=== PATIENT | male | born 2000 | race Caucasian/White ===

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

== ENCOUNTER 2023-03-08 09:31 | Emergency (ER) | payer OTHER, SELFPAY ==
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
[2023-03-08 09:45] VITALS: BP 128/54; PULSE 48; RESP 16; TEMP 36.9; O2SAT 98; BMI 26.3
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
[2023-03-08 10:02] VITALS: BP 132/55; PULSE 64; RESP 16; TEMP 37.1; O2SAT 97
[2023-03-08] MEDS: Cyclobenzaprine HCl 10 MG TABLET PO (10:30)
[2023-03-08] MEDS: Ketorolac Tromethamine 15 MG/ML VIAL IM (10:31)
[2023-03-08] MEDS: Lidocaine 4 % Patch ADH..PATCH 1 PATCH TRANSDERMA (10:31)
--- NOTE | 2023-03-08 10:36 | PC.NURSE ---
medication administered per provider order. pt awaiting xray at this time.
== END 2023-03-08 12:32 | disposition home or self-care (01) ==
PROVIDERS: Emergency Provider Emergency Medicine
DX: S16.1XXA Strain of muscle, fascia and tendon at neck level, initial encounter (principal); S39.012A Strain of muscle, fascia and tendon of lower back, initial encounter; R51.9 Headache, unspecified; M54.2 Cervicalgia; M25.511 Pain in right shoulder; V43.52XA Car driver injured in collision with other type car in traffic accident, initial encounter; Y93.9 Activity, unspecified; Y92.410 Unspecified street and highway as the place of occurrence of the external cause; Y99.9 Unspecified external cause status
CPT/HCPCS: 72040; 72100; 73030; 96372; 99284; J1885

== ENCOUNTER 2023-04-10 02:55 | Emergency (ER) | payer OTHER, SELFPAY ==
--- NOTE | ~2023-04-10 | CT_ITS ---
EXAMINATION: CT HEAD WITHOUT CONTRAST CT CERVICAL SPINE WITHOUT CONTRAST. CLINICAL INFORMATION: Headache. COMPARISON: None available. TECHNIQUE: Contiguous axial imaging was performed through the head and cervical spine without intravenous administration of contrast. Sagittal and coronal reformatted images also obtained. This CT examination was performed using dose optimization techniques as appropriate, variously including the following: *Automated exposure control *Adjustment of mA and/or kV according to patient size (this includes techniques or standardized protocols for targeted exams where dose is matched to indication/reason for exam; i.e. extremities or head) *Use of iterative reconstruction technique DLP: 1199 mGy-cm FINDINGS: The lateral, third and fourth ventricles are normally outlined. The cortical sulci and basal cisterns are normally outlined as well. There is no acute territorial defect, hemorrhage or midline shift. The extra-axial spaces are unremarkable. Calvarium: Intact. Maxillofacial sinuses and mastoids: Clear as visualized. Cervical spine: There is straightening of the expected cervical spine curvature. The disc spaces are maintained. The spinal canal and neuroforamen are patent. The bone mineralization is normal. There is no fracture. Soft tissues are unremarkable. The visualized upper lung lewis are clear. CT/CT cervical spine wo IV con IMPRESSION: 1. No evidence of acute intracranial abnormality. 2. No evidence of acute cervical spine traumatic injury.
--- NOTE | ~2023-04-10 | CT_ITS ---
EXAMINATION: CT HEAD WITHOUT CONTRAST CT CERVICAL SPINE WITHOUT CONTRAST. CLINICAL INFORMATION: Headache. COMPARISON: None available. TECHNIQUE: Contiguous axial imaging was performed through the head and cervical spine without intravenous administration of contrast. Sagittal and coronal reformatted images also obtained. This CT examination was performed using dose optimization techniques as appropriate, variously including the following: *Automated exposure control *Adjustment of mA and/or kV according to patient size (this includes techniques or standardized protocols for targeted exams where dose is matched to indication/reason for exam; i.e. extremities or head) *Use of iterative reconstruction technique DLP: 1199 mGy-cm FINDINGS: The lateral, third and fourth ventricles are normally outlined. The cortical sulci and basal cisterns are normally outlined as well. There is no acute territorial defect, hemorrhage or midline shift. The extra-axial spaces are unremarkable. Calvarium: Intact. Maxillofacial sinuses and mastoids: Clear as visualized. Cervical spine: There is straightening of the expected cervical spine curvature. The disc spaces are maintained. The spinal canal and neuroforamen are patent. The bone mineralization is normal. There is no fracture. Soft tissues are unremarkable. The visualized upper lung lewis are clear. CT/CT head/brain wo IV con IMPRESSION: 1. No evidence of acute intracranial abnormality. 2. No evidence of acute cervical spine traumatic injury.
[2023-04-10 03:13] VITALS: BP 131/71; PULSE 67; RESP 16; TEMP 36.6; O2SAT 99; BMI 26.6
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
[2023-04-10 05:16] VITALS: BP 118/63; PULSE 73; RESP 16; O2SAT 98
== END 2023-04-10 05:17 | disposition home or self-care (01) ==
PROVIDERS: Emergency Provider Emergency Medicine
DX: S06.0X0A Concussion without loss of consciousness, initial encounter (principal); V43.52XA Car driver injured in collision with other type car in traffic accident, initial encounter; Y93.9 Activity, unspecified; Y92.410 Unspecified street and highway as the place of occurrence of the external cause; Y99.9 Unspecified external cause status; R51.9 Headache, unspecified; M54.2 Cervicalgia
CPT/HCPCS: 70450; 72125; 99282; 99284

== ENCOUNTER 2024-06-16 07:10 | Emergency (ER) | payer OTHER, SELFPAY ==
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
[2024-06-16 07:13] VITALS: BP 138/78; PULSE 95; O2SAT 98
[2024-06-16 07:22] VITALS: BP 110/67; PULSE 61; RESP 18; TEMP 36.4; O2SAT 98; BMI 25.3
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
[2024-06-16] MEDS: Ibuprofen 600 MG TABLET PO (09:01)
[2024-06-16 09:17] LABS: Appearance Urine Clear; Color Urine Yellow; Glucose Urine UA Negative (Negative); Leukocyte Esterase Urine Trace (Negative); Nitrite Urine Negative (Negative); PH 7.5 (5.0-9.0); Specific Gravity - Urine <= 1.005 (1.005-1.025); UMIC TRIGGER UACC YES; Urine Blood Negative (Negative); Urine Ketones Negative (Negative); Urine Protein Negative (Neg-Trace)
[2024-06-16 09:22] LABS: Bacteria Urine None Seen (None Seen); Hyaline Casts Urine 0-2 /LPF (0-2); RBC Urine 0-2 /HPF (0-2); Squamous Epithelial Cell Urine 0-2 /HPF (0-2); WBC Urine 0-5 /HPF (0-5)
[2024-06-16 10:15] VITALS: BP 110/67; PULSE 61; RESP 18; TEMP 36.4; O2SAT 98
== END 2024-06-16 10:15 | disposition home or self-care (01) ==
PROVIDERS: Emergency Provider Emergency Medicine
DX: S30.0XXA Contusion of lower back and pelvis, initial encounter (principal); M54.2 Cervicalgia; M54.50 Low back pain, unspecified; M25.511 Pain in right shoulder; F17.210 Nicotine dependence, cigarettes, uncomplicated; V43.52XA Car driver injured in collision with other type car in traffic accident, initial encounter; Y93.9 Activity, unspecified; Y92.410 Unspecified street and highway as the place of occurrence of the external cause; Y99.8 Other external cause status
CPT/HCPCS: 71046; 72100; 72125; 81001; 99283; 99284

== ENCOUNTER → 2024-06-16 07:56 | Outpatient (BNV) | payer OTHER, SELFPAY | PROVIDERS: Emergency Provider Emergency Medicine; Visit Provider Radiology Diagnostic Radiology | DX: M54.2 Cervicalgia (principal); M54.50 Low back pain, unspecified; M25.511 Pain in right shoulder; V89.2XXA Person injured in unspecified motor-vehicle accident, traffic, initial encounter | CPT/HCPCS: 71046; 72100; 72125 ==